=== PATIENT | male | born 1990 | race Caucasian/White ===

== ENCOUNTER 2017-04-14 06:02 | Emergency (ER) | payer MEDICAID ==
[~2017-04-14] VITALS: Ht 175.3 cm; Wt 72.0 kg
[2017-04-14 06:09] VITALS: Ht 175.3 cm; Wt 72.0 kg
--- NOTE | 2017-04-14 07:07 | ERD ---
ER Documentation Chief Complaint Date/Time DATE: 04/14/17 TIME: 07:04 Chief Complaint chest pain/lower back pain x 1 hour HPI Is a 26-year-old male presents to the emergency department today complaining of left-sided chest pain and right-sided back pain. Patient states he has pain with deep inspiration. He has not taken any medication for the pain. Denies any fevers or chills, loss of bowel or bladder control, hematuria, cough or shortness of breath. Denies any significant trauma however he states that he does have diabetes. ROS All systems reviewed and are negative except as per history of present illness. Medications Home Meds Active Scripts Naproxen* (Naprosyn*) 500 Mg Tablet, 500 MG PO BID Y for PAIN AND/OR INFLAMMATION, #30 TAB Prov:JONY TIRADO PA-C 04/14/17 Acetaminophen* (Tylophen*) 500 Mg Capsule, 1 CAP PO Q6H Y for PAIN AND OR ELEVATED TEMP, #30 CAP Prov:JONY TIRADO PA-C 04/14/17 Allergies Allergies: Coded Allergies: No Known Allergy (Unverified , 04/14/17) PMhx/Soc Medical and Surgical Hx: pt denies Medical Hx, pt denies Surgical Hx Hx Alcohol Use: No Hx Substance Use: No Hx Tobacco Use: No Smoking Status: Never smoker Physical Exam Vitals Vital Signs Date Time Temp Pulse Resp B/P Pulse Ox O2 Delivery O2 Flow Rate FiO2 04/14/17 06:09 98.5 76 20 134/83 99 Physical Exam Const: No acute distress Head: Atraumatic Eyes: Normal Conjunctiva ENT: Normal External Ears, Nose and Mouth. Neck: Full range of motion..~ No meningismus. Resp: Clear to auscultation bilaterally. No absent breath sounds. No wheezing. Left-sided chest pain tenderness to palpation Cardio: Regular rate and rhythm, no murmurs Abd: Soft, non tender, non distended. Normal bowel sounds Skin: No petechiae or rashes Back: No midline tenderness. Right-sided lumbar paraspinal tenderness. Full active range of motion. Pulses 2+. Distal neurovascularly intact. No CVA tenderness. Ext: No cyanosis, or edema Neur: Awake and alert Psych: Normal Mood and Affect Result Diagram: 04/14/17 0811 Results 24 hrs Laboratory Tests Test 04/14/17 07:34 04/14/17 07:53 04/14/17 08:11 Bedside Urine pH (LAB) 5.0 Bedside Urine Protein (LAB) Negative Bedside Urine Glucose (UA) 0.50% Bedside Urine Ketones (LAB) 2+ Bedside Urine Blood Negative Bedside Urine Nitrite (LAB) Negative Bedside Urine Leukocyte Esterase (L Negative Bedside Glucose 334mg/dL Sodium Level 138mmol/L Potassium Level 4.0mmol/L Chloride Level 102mmol/L Carbon Dioxide Level 24mmol/L Anion Gap 16 Blood Urea Nitrogen 14mg/dl Creatinine 0.77mg/dl Glucose Level 372mg/dl Calcium Level 9.6mg/dl Current Medications Medications (Trade) Dose Ordered Sig/Deneen Route PRN Reason Start Time Stop Time Status Last Admin Dose Admin Acetaminophen/ Hydrocodone Bitart 1 tab 1 tab ONCE ONCE PO 04/14/17 07:30 04/14/17 07:31 DC 04/14/17 07:25 Sodium Chloride (NS) 1,000 ml @ 1,000 mls/hr Q1H ONCE IV 04/14/17 08:00 04/14/17 08:59 DC 04/14/17 08:06 DIAGNOSTIC IMAGING REPORT Patient: SAGRARIO PEPPER : 1990 Age: 26 Sex: M MR #: [id number] DOS: 04/14/17 0000 Ordering MD: JONY TIRADO PA-C Location: [facility] Room/Bed: PROCEDURE: XR Chest. CLINICAL INDICATION: Chest pain TECHNIQUE: Single frontal chest x-ray. COMPARISON: None. FINDINGS: No acute infiltrate, pleural effusion or pneumothorax is identified. Cardiomediastinal silhouette is within normal limits. The osseous structures are unremarkable. IMPRESSION: 1. No evidence of acute cardiopulmonary process. RPTAT: HH .Mukesh Riddle MD, Date Time Electronically viewed and signed by .Mukesh Riddle MD, MD on 04/14/2017 08: 05 .R/ CC: JONY TIRADO PA-C Procedures/MDM This 26-year-old male who presents the emergency department today complaining of left-sided chest pain and right-sided back pain that started upon awakening this morning. Did obtain EKG, chest x-ray and UA EKG read and interpreted by Dr. Johnson. Rate [address] elevation. No QT prolongation. Normal sinus rhythm with early repolarization. Low suspicion for acute MO, PE, pericarditis. Chest x-ray shows no evidence of acute cardiopulmonary process Patient is afebrile and otherwise well-appearing. He is not tachycardic and his oxygen saturation 99%. Low suspicion for PE, abscess, pleural effusion, pneumothorax, pneumonia UA is negative for infection. Patient did have 2+ ketones and positive glucose in his urine. Spoke to Dr. Johnson about patient's UA and he has requested an Accu-Chek and BMP. Accu-Chek is 334 BMP shows a blood glucose of 372. Patient is not in DKA. Patient was given a liter of fluids Patient has no midline tenderness and he denies any significant trauma I do not feel he requires imaging at this time. Low suspicion for acute fracture dislocation. Low suspicion for abscess or cauda equina as patient has no loss of bowel or bladder control and is afebrile and otherwise well-appearing. Patient was given [place] here in the emergency department and pain resolved.. He will be given a prescription for Naprosyn and Tylenol for home Patient symptoms at this time is consistent with chest wall pain, acute low back pain likely secondary to costochondritis and sprain versus strain. He also has hyperglycemia. Patient is a known diabetic and states that he takes [id number] insulin and takes 14 units in the morning and 17 units at night however he could not tell me the type of insulin that he is taking. States that he moved here a year ago from [place] and that is why he does not have a doctor. I discussed the patient again with Dr. Johnson and he feels that the patient is stable for discharge and outpatient management and that patient may continue taking over- the-counter insulin. I have explained to the patient that his blood sugar is not well controlled and he needs to be followed for this. Patient understood At this time the patient is stable for discharge and outpatient management. Patient should follow up with their PCP in the next 1-2 days he was given a list of community resources. They may return to the emergency department sooner for any persistent or worsening of symptoms. Patient understood and agreed with the plan. Departure Diagnosis: Primary Impression: Chest wall pain Additional Impression: Hyperglycemia Condition: Fair JONY TIRADO PA-C Apr 14, 2017 07:07
[2017-04-14 07:30] LABS: URINE BLOOD (Dip) POC Negative (NEGATIVE)
[2017-04-14] MEDS ORDERED: HYDROCODONE/APAP (5/325) TAB PO ONE (07:30)
[2017-04-14] MEDS ORDERED: SOD CHLORIDE 0.9% 1,000 ML IV ONE (08:00)
--- NOTE | 2017-04-14 08:06 | RADRPT ---
PROCEDURE: XR Chest. CLINICAL INDICATION: Chest pain TECHNIQUE: Single frontal chest x-ray. COMPARISON: None. FINDINGS: No acute infiltrate, pleural effusion or pneumothorax is identified. Cardiomediastinal silhouette i s within normal limits. The osseous structures are unremarkable. IMPRESSION: 1. No evidence of acute cardiopulmonary process. RPTAT: HH .Mukesh Riddle MD, MD Date Time Electronically viewed and signed by .Mukesh Riddle MD, on 04/14/2017 08:05 .R/
[2017-04-14 08:58] LABS: CALCIUM 9.6 mg/dl (8.4-10.2); CREATININE 0.77 mg/dl (0.61-1.24)
[2017-04-14] MEDS ORDERED: ACET500C5 PO (09:57)
[2017-04-14] MEDS ORDERED: NAPR-260 PO (09:57)
== END 2017-04-14 10:30 | disposition home or self-care (01) ==
LOC: FTE 06:02
DX: R07.89 Other chest pain (principal); R73.9 Hyperglycemia, unspecified
CPT/HCPCS: 71010; 80048; 81003; 82962; 93005; 96360; J7030; Z7502; Z7610

== ENCOUNTER → 2017-04-30 | Outpatient (CLI) | payer MEDICAID ==
[~2017-04-30] MED LIST: ACET500C5 PO; NAPR-260 PO
== END | disposition home or self-care (01) ==
LOC: DIB 16:20
PROVIDERS: ATTEND Emergency Medicine
DX: Z02.9 Encounter for administrative examinations, unspecified (principal)